=== PATIENT | female | born 1995 | race Caucasian/White ===

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

== ENCOUNTER 2017-03-17 08:47 | Emergency (ER) | payer OTHER ==
[~2017-03-17] VITALS: Ht 160 cm; Wt 57.0 kg
[~2017-03-17 08:47] MED LIST: BCPILLS PO; SERT25TA PO
[2017-03-17 08:53] VITALS: TEMP 36.5; Ht 160 cm; Wt 57.0 kg
[2017-03-17] MEDS ORDERED: SERT50TA PO (09:03)
[2017-03-17] MEDS ORDERED: ONDANSETRON INJ 2 MG/ML 2 ML VIAL IV STA (09:05)
[2017-03-17] MEDS ORDERED: ONDA4TAB46 PO (09:05)
[2017-03-17] MEDS ORDERED: SODIUM CHLORIDE 0.9% 1000ML 1,000 ML IV STA (09:05)
[2017-03-17 09:25] LABS: BASO % 0.3 %; BASO ABS # 0.02 K/uL (0-0.2); COMPLETE YES; EOS % 0.8 %; HEMATOCRIT 43.4 % (37-47); IG% 0.1 %; LYMPH % 25.7 %; LYMPH ABS # 1.92 K/uL (1.2-3.4); MEAN CELL VOLUME 86.6 fL (80-100); MEAN CORPUSCULAR HEMOGLOBIN 30.3 pg (25-34); MEAN PLATELET VOLUME 11.3 fL (7.4-10.4); MONO % 4.1 %; PLATELET COUNT 190 K/uL (130-400); RED BLOOD COUNT 5.01 M/uL (4.2-5.4); WHITE BLOOD COUNT 7.48 K/uL (4.8-10.8)
[2017-03-17] MEDS ORDERED: PROMETHAZINE HCL INJ 25 MG/ML 1 ML VIAL IV STA (09:48)
[2017-03-17 09:49] LABS: BUN/CREATININE RATIO 8.5 (10-20); CALCIUM 9.7 mg/dl (8.5-10.1); CREATININE 0.68 mg/dl (0.60-1.20); POTASSIUM 3.6 mmol/L (3.5-5.1)
[2017-03-17 09:53] LABS: URINE APPEARANCE TURBID (CLEAR); URINE BILIRUBIN NEG (NEG); URINE COLOR DK YELLOW; URINE EPITHELIAL CELL AUTO >30 /lpf (0-5); URINE NITRITE NEG (NEG); URINE SPECIFIC GRAVITY 1.025 (1.000-1.030); UROBILINOGEN NEG (NEG); ZZUR CULT IF INDIC CLEAN CATCH YES
[2017-03-17 09:59] LABS: MANUAL MICROSCOPIC REQUIRED? NO; REVIEW REQ? YES
[2017-03-17] MEDS ORDERED: PROMETHAZINE HCL INJ 25 MG in SODIUM CHLORIDE 0.9% 50ML 50 ML IV STA (10:00)
[2017-03-17 11:22] LABS: URINE APPEARANCE CLOUDY (CLEAR); URINE BILIRUBIN NEG (NEG); URINE COLOR YELLOW; URINE EPITHELIAL CELL AUTO >30 /lpf (0-5); URINE NITRITE NEG (NEG); URINE PH >= 9.0 (4.5-7.5); URINE SPECIFIC GRAVITY 1.019 (1.000-1.030); UROBILINOGEN NEG (NEG); ZZUR CULT IF INDIC CLEAN CATCH YES
[2017-03-17 11:23] LABS: MANUAL MICROSCOPIC REQUIRED? NO; REVIEW REQ? YES
[2017-03-17] MEDS ORDERED: PROM1SUP19 PR (12:24)
--- NOTE | 2017-03-17 12:25 | EMERGENCY ROOM VISIT NOTE ---
History First contact with patient: 08:57 Chief Complaint: NAUSEA Stated Complaint: N/V, ABD. PAIN-6 WKS. Nursing Triage Summary: pt reports she is approx 6 weeks preg - pt reports for the past week nausea and vomitting. pt generalized abd pain. pt reports she had boarding specialist appt last week. pt reports "Everything hurts." History of Present Illness The patient is a 21 year old female who presents to the Emergency Room with complaints of nausea and vomiting for the past 4 days. The patient is 6 weeks . She denies any fever, chest pain or shortness of breath. The patient does admit to generalized abdominal pain. She denies any change in bowel habits. The patient denies any vaginal discharge. The patient states she called into her [employer] DEVELOP[employer] yesterday and was given Zofran but states she has just vomits after taking the Zofran. The patient has been unable to keep anything down. She states the vomiting is getting worse. The patient denies any friends or family members with similar symptoms. The patient states that she had morning sickness with her last but not this bad. Review of Systems 10 system review was performed and was negative unless stated otherwise history of present illness. Past Medical/Surgical History Medical Problems: (1) Tobacco use disorder (2) Tobacco use disorder Surgical Problems: (1) S/P tonsillectomy Family History Diabetes mellitus Hypertension Kidney disease Kidney stones Social History Smoking Status: Current Every Day Smoker Alcohol Use: none Drug Use: none Marital Status: in relationship Housing Status: lives with family Occupation Status: employed Current/Historical Medications Scheduled Sertraline (Zoloft), 50 MG PO HS Scheduled PRN Ondansetron Hcl (Zofran), 4 MG PO Q4H PRN for Nausea or Vomiting Physical Exam Vital Signs Date Time Temp Pulse Resp B/P (MAP) Pulse Ox O2 Delivery O2 Flow Rate FiO2 03/17/17 11:51 58 16 108/69 98 Room Air 03/17/17 10:32 70 18 98/67 98 Room Air 03/17/17 08:53 36.5 64 18 114/94 99 Room Air Physical Exam GENERAL: 21-year-old 6 week female appears in no acute distress. She is actively vomiting. MENTAL Status: Alert and oriented 3. MOUTH: Mucosa is slightly dry. NECK: Supple, no lymphadenopathy noted. No carotid bruits noted. LUNGS: Clear auscultation without wheezes rales or rhonchi. CARDIAC: Regular rate and rhythm without murmur. Pulses is full and equal throughout. BACK: No CVA tenderness noted. ABDOMEN: Positive bowel sounds all 4 quadrants. Generalized tenderness palpation throughout. No specific point tenderness. No rebound or rigidity noted EXTREMITIES: No cyanosis or edema noted. Medical Decision & Procedures Laboratory Results 03/17/17 09:14 Red Blood Count 5.01, Mean Corpuscular Volume 86.6, Mean Corpuscular Hemoglobin 30.3, Mean Corpuscular Hemoglobin Concent 35.0, Mean Platelet Volume 11.3, Neutrophils (%) (Auto) 69.0, Lymphocytes (%) (Auto) 25.7, Monocytes (%) (Auto) 4.1, Eosinophils (%) (Auto) 0.8, Basophils (%) (Auto) 0.3, Neutrophils # (Auto) 5.16, Lymphocytes # (Auto) 1.92, Monocytes # (Auto) 0.31, Eosinophils # (Auto) 0.06, Basophils # (Auto) 0.02 03/17/17 09:14 Test 03/17/17 09:14 03/17/17 11:03 White Blood Count 7.48 K/uL (4.8-10.8) Red Blood Count 5.01 M/uL (4.2-5.4) Hemoglobin 15.2 g/dL (12.0-16.0) Hematocrit 43.4 % (37-47) Mean Corpuscular Volume 86.6 fL (80-100) Mean Corpuscular Hemoglobin 30.3 pg (25-34) Mean Corpuscular Hemoglobin Concent 35.0 g/dl (32-36) Platelet Count 190 K/uL (130-400) Mean Platelet Volume 11.3 fL (7.4-10.4) Neutrophils (%) (Auto) 69.0 % Lymphocytes (%) (Auto) 25.7 % Monocytes (%) (Auto) 4.1 % Eosinophils (%) (Auto) 0.8 % Basophils (%) (Auto) 0.3 % Neutrophils # (Auto) 5.16 K/uL (1.4-6.5) Lymphocytes # (Auto) 1.92 K/uL (1.2-3.4) Monocytes # (Auto) 0.31 K/uL (0.11-0.59) Eosinophils # (Auto) 0.06 K/uL (0-0.5) Basophils # (Auto) 0.02 K/uL (0-0.2) RDW Standard Deviation 42.4 fL (36.4-46.3) RDW Coefficient of Variation 13.4 % (11.5-14.5) Immature Granulocyte % (Auto) 0.1 % Immature Granulocyte # (Auto) 0.01 K/uL (0.00-0.02) Urine Pathogenic Casts /lpf (0) Anion Gap 6.0 mmol/L (3-11) Est Creatinine Clear Calc Drug Dose 110.0 ml/min Estimated GFR () 147.0 Estimated GFR (Non- 126.8 BUN/Creatinine Ratio 8.5 (10-20) Calcium Level 9.7 mg/dl (8.5-10.1) Total Bilirubin 0.6 mg/dl (0.2-1) Direct Bilirubin 0.2 mg/dl (0-0.2) Aspartate Amino Transf (AST/SGOT) 13 U/L (15-37) Alanine Aminotransferase (ALT/SGPT) 20 U/L (12-78) Alkaline Phosphatase 79 U/L (45-117) Total Protein 7.4 gm/dl (6.4-8.2) Albumin 4.6 gm/dl (3.4-5.0) Lipase 117 U/L (73-393) Human Chorionic Gonadotropin, Quant 43938 mIU/mL Urine Color YELLOW Urine Appearance CLOUDY (CLEAR) Urine pH >= 9.0 (4.5-7.5) Urine Specific [place] 1.019 (1.000-1.030) Urine Protein NEG (NEG) Urine Glucose (UA) NEG (NEG) Urine Ketones 2+ (NEG) Urine Occult Blood NEG (NEG) Urine Nitrite NEG (NEG) Urine Bilirubin NEG (NEG) Urine Urobilinogen NEG (NEG) Urine Leukocyte Esterase MODERATE (NEG) Urine WBC (Auto) 10-30 /hpf (0-5) Urine RBC (Auto) 0-4 /hpf (0-4) Urine Hyaline Casts (Auto) 10-30 /lpf (0-5) Urine Epithelial Cells (Auto) >30 /lpf (0-5) Urine Bacteria (Auto) 1+ (NEG) Urine Renal Epithelial Cells /lpf (0-5) Urine Crystals AMORPHOUS SEDIMENT (NONE Medications Administered Medications (Trade) Dose Ordered Sig/Danny Route Start Time Stop Time Status Last Admin Dose Admin Ondansetron HCl (Zofran Inj) 4 mg NOW STAT IV 03/17/17 09:05 03/17/17 09:08 DC 03/17/17 09:17 4 MG Sodium Chloride 1,000 ml @ 999 mls/hr Q1H1M STAT IV 03/17/17 09:05 03/17/17 10:05 DC 03/17/17 09:17 999 MLS/HR Promethazine HCl 25 mg/Sodium Chloride 51 ml @ 204 mls/hr NOW STAT IV 03/17/17 10:00 03/17/17 10:14 DC 03/17/17 10:07 204 MLS/HR ED Course The patient was evaluated. The patient's EMR medication list were reviewed. IV access was obtained. The patient was given 1 L normal saline wide-open and Zofran 4 mg IV push. CBC and differential, renal profile, LFTs and lipase levels were ordered. Quantitative beta-hCG was ordered. Labs are reviewed and were unremarkable. Quantitative beta hCG was 30,000. The patient did not have any relief of nausea with the Zofran and therefore she was given Phenergan 25 mg IV. The patient was reevaluated was feeling better. The patient's urinalysis revealed a lot of contamination therefore a repeat urinalysis was performed. The urine still had positive leukocytes and bacteria but there was still a large amount of epithelial cells. This will be sent for culture. The patient was informed of all findings and discharged home in stable condition. Medical Decision Differential diagnosis include hyper emesis gravidarum, acute gastritis Medication Reconcilliation Current Medication List: was personally reviewed by ks Blood Pressure Screening Patient's blood pressure: Normal blood pressure Impression Primary Impression: Hyperemesis gravidarum Departure Information Dispostion Home / Self-Care Condition GOOD Prescriptions Promethazine (Phenergan Suppository) 25 Mg Supp 25 MG WI Q4H Y for Nausea, #10 SUPP NAUSEA Prov: Lolita Rodriguez PA-C 03/17/17 Referrals No Doctor, Assigned (PCP) Forms HOME CARE DOCUMENTATION FORM, IMPORTANT VISIT INFORMATION Patient Instructions [facility] Additional Instructions Push fluids. Take Zofran as needed for nausea. If the Zofran does not improve your nausea use the Phenergan suppositories as directed. Follow-up with your OB /CHIEF CONCIERGE. If you have any uncontrolled nausea vomiting return to the ER.
[2017-03-17 12:49] VITALS: BP 110/66; PULSE 50; O2SAT 100
== END 2017-03-17 12:50 | disposition home or self-care (01) ==
LOC: C.EDB 08:48
DX: O21.0 Mild hyperemesis gravidarum (principal); Z3A.01 Less than 8 weeks gestation of pregnancy; F17.210 Nicotine dependence, cigarettes, uncomplicated; O99.331 Smoking (tobacco) complicating pregnancy, first trimester

== ENCOUNTER 2017-08-14 15:34 | Emergency (ER) | payer OTHER ==
[~2017-08-14] VITALS: Ht 160 cm; Wt 64.5 kg
[~2017-08-14 15:34] MED LIST changes: -BCPILLS PO; +ONDA4TAB46 PO; +PROM1SUP19 PR; -SERT25TA PO; +SERT50TA PO
[2017-08-14 15:38] VITALS: Ht 160 cm; Wt 64.5 kg
[2017-08-14] MEDS ORDERED: PRENTAB26 PO (16:00)
[2017-08-14 16:44] LABS: BASO % 0.2 %; BASO ABS # 0.02 K/uL (0-0.2); EOS % 0.7 %; EOS ABS # 0.09 K/uL (0-0.5); HEMATOCRIT 33.7 % (37-47); HEMOGLOBIN 11.6 g/dL (12.0-16.0); IG# 0.05 K/uL (0.00-0.02); LYMPH ABS # 2.09 K/uL (1.2-3.4); MEAN CELL VOLUME 90.6 fL (80-100); MEAN CORPUSCULAR HEMOGLOBIN 31.2 pg (25-34); MEAN CORPUSCULAR HGB CONC 34.4 g/dl (32-36); MEAN PLATELET VOLUME 11.1 fL (7.4-10.4); MONO % 4.1 %; NEUT % 77.6 %; NEUT ABS # 9.58 K/uL (1.4-6.5); PLATELET COUNT 180 K/uL (130-400); RED CELL DISTRIBUTION WIDTH CV 13.1 % (11.5-14.5); RED CELL DISTRIBUTION WIDTH SD 43.1 fL (36.4-46.3); WHITE BLOOD COUNT 12.33 K/uL (4.8-10.8)
[2017-08-14 17:10] LABS: ALBUMIN 3.1 gm/dl (3.4-5.0); ALT/SGPT 16 U/L (12-78); AST/SGOT 12 U/L (15-37); BLOOD UREA NITROGEN 5 mg/dl (7-18); CALCIUM 8.4 mg/dl (8.5-10.1); CARBON DIOXIDE 25 mmol/L (21-32); CREATININE 0.33 mg/dl (0.60-1.20); GLUCOSE 70 mg/dl (70-99); POTASSIUM 3.7 mmol/L (3.5-5.1); SODIUM 136 mmol/L (136-145)
[2017-08-14 17:20] LABS: ALKALINE PHOSPHATASE 73 U/L (45-117); TOTAL PROTEIN 6.3 gm/dl (6.4-8.2)
[2017-08-14] MEDS ORDERED: NITROFURANTOIN MONOHYDRATE 100 MG CAP PO ONE (20:30)
[2017-08-14] MEDS ORDERED: NICOTINE POLACRILEX 2 MG GUM MT PRN (20:30)
--- NOTE | 2017-08-14 20:55 | EMERGENCY ROOM VISIT NOTE ---
History Report prepared by Cristiibtom: Vy David Under the Supervision of: Dr. Sharif Fields D.O. First contact with patient: 15:42 Chief Complaint: MENTAL HEALTH EVALUATION Stated Complaint: MENTAL HEALTH EVAL History of Present Illness The patient is a 22 year old female who presents to the Emergency Room with complaints of needing a mental health evaluation. She reports she found out recently that her of 4 months has been cheating on her. Today she found out there was "more to it than I previously thought", so she began having suicidal ideations. She denies any active plan or homicidal ideations. She denies any formal mental health diagnoses but admits to thoughts of depression and anxiety in the past. She has a family history of depression her Mother's side. She has never been treated inpatient at a psychiatric facility in the past. Today she asked her to call the police as she felt she needed to be evaluated. The patient is currently 28 weeks with her second and states the has been normal. She has a little boy at home. Her most recent ultrasound was at 22 weeks and normal. She denies any vaginal bleeding or abnormal vaginal discharge. Pt denies headache, change in vision, fevers, chest pain, shortness of breath, nausea, vomiting, diarrhea, pain with urination, and melena. 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 A total of 10 systems reviewed and were otherwise negative. Past Medical & Surgical Medical Problems: (1) Tobacco use disorder (2) Tobacco use disorder Surgical Problems: (1) S/P tonsillectomy Family History Diabetes mellitus Hypertension Kidney disease Kidney stones Social History Smoking Status: Never Smoker Alcohol Use: none Drug Use: none Marital Status: in relationship Housing Status: lives with family Occupation Status: employed Current/Historical Medications Scheduled Multivit/Min/Iron/Fol Ac/Pren ( Vitamin), 1 TAB PO DAILY Allergies Coded Allergies: Amoxicillin (Verified Allergy, Mild, RASH, 08/14/17) Physical Exam Vital Signs Date Time Temp Pulse Resp B/P (MAP) Pulse Ox O2 Delivery O2 Flow Rate FiO2 08/14/17 17:00 80 14 106/76 99 08/14/17 15:38 36.8 101 17 118/78 98 Room Air Physical Exam GENERAL: Sitting up in bed, alert, anxious and tearful, in no acute distress EYE EXAM: Conjunctiva injected OROPHARYNX: no exudate, no erythema, lips, buccal mucosa, and tongue normal and mucous membranes are moist NECK: supple, no nuchal rigidity, no adenopathy, non-tender LUNGS: Clear to auscultation. Normal chest wall mechanics HEART: no murmurs, S1 normal and S2 normal ABDOMEN: Gravid uterus, non-tender abdomen, normo-active bowel sounds, no masses , no rebound or guarding. BACK: Back is symmetrical on inspection and there is no deformity, no midline tenderness, no CVA tenderness. SKIN: no rashes and no bruising UPPER EXTREMITIES: upper extremities are grossly normal. LOWER EXTREMITIES: No pitting edema. NEURO EXAM: Normal sensorium, cranial nerves II-XII grossly intact, normal speech, no gross weakness of arms, no gross weakness of legs. Gross sensation intact. PSYCHIATRIC: Admits to suicidal thoughts, no clear plan. Medical Decision & Procedures Laboratory Results 08/14/17 16:23 Red Blood Count 3.72, Mean Corpuscular Volume 90.6, Mean Corpuscular Hemoglobin 31.2, Mean Corpuscular Hemoglobin Concent 34.4, Mean Platelet Volume 11.1, Neutrophils (%) (Auto) 77.6, Lymphocytes (%) (Auto) 17.0, Monocytes (%) (Auto) 4.1, Eosinophils (%) (Auto) 0.7, Basophils (%) (Auto) 0.2, Neutrophils # (Auto) 9.58, Lymphocytes # (Auto) 2.09, Monocytes # (Auto) 0.50, Eosinophils # (Auto) 0.09, Basophils # (Auto) 0.02 08/14/17 16:23 Test 08/14/17 00:00 08/14/17 16:23 Urine Color YELLOW Urine Appearance CLOUDY (CLEAR) Urine pH 8.5 (4.5-7.5) Urine Specific [place] 1.016 (1.000-1.030) Urine Protein NEG (NEG) Urine Glucose (UA) NEG (NEG) Urine Ketones NEG (NEG) Urine Occult Blood TRACE (NEG) Urine Nitrite NEG (NEG) Urine Bilirubin NEG (NEG) Urine Urobilinogen NEG (NEG) Urine Leukocyte Esterase SMALL (NEG) Urine WBC (Auto) 5-10 /hpf (0-5) Urine RBC (Auto) 5-10 /hpf (0-4) Urine Hyaline Casts (Auto) 5-10 /lpf (0-5) Urine Epithelial Cells (Auto) >30 /lpf (0-5) Urine Bacteria (Auto) 1+ (NEG) Urine Test POS (NEG) Urine Opiates Screen NEG (NEG) Urine Methadone, Qualitative NEG (NEG) Urine Barbiturates NEG (NEG) Urine Phencyclidine (PCP) Level NEG (NEG) Ur Amphetamine/Methamphetamine NEG (NEG) MDMA (Ecstasy) Screen NEG (NEG) Urine Benzodiazepines Screen NEG (NEG) Urine Cocaine Metabolite NEG (NEG) Urine Marijuana (THC) NEG (NEG) White Blood Count 12.33 K/uL (4.8-10.8) Red Blood Count 3.72 M/uL (4.2-5.4) Hemoglobin 11.6 g/dL (12.0-16.0) Hematocrit 33.7 % (37-47) Mean Corpuscular Volume 90.6 fL (80-100) Mean Corpuscular Hemoglobin 31.2 pg (25-34) Mean Corpuscular Hemoglobin Concent 34.4 g/dl (32-36) Platelet Count 180 K/uL (130-400) Mean Platelet Volume 11.1 fL (7.4-10.4) Neutrophils (%) (Auto) 77.6 % Lymphocytes (%) (Auto) 17.0 % Monocytes (%) (Auto) 4.1 % Eosinophils (%) (Auto) 0.7 % Basophils (%) (Auto) 0.2 % Neutrophils # (Auto) 9.58 K/uL (1.4-6.5) Lymphocytes # (Auto) 2.09 K/uL (1.2-3.4) Monocytes # (Auto) 0.50 K/uL (0.11-0.59) Eosinophils # (Auto) 0.09 K/uL (0-0.5) Basophils # (Auto) 0.02 K/uL (0-0.2) RDW Standard Deviation 43.1 fL (36.4-46.3) RDW Coefficient of Variation 13.1 % (11.5-14.5) Immature Granulocyte % (Auto) 0.4 % Immature Granulocyte # (Auto) 0.05 K/uL (0.00-0.02) Anion Gap 4.0 mmol/L (3-11) Est Creatinine Clear Calc Drug Dose 245.7 ml/min Estimated GFR () > 150.0 Estimated GFR (Non- > 150.0 BUN/Creatinine Ratio 15.6 (10-20) Calcium Level 8.4 mg/dl (8.5-10.1) Total Bilirubin 0.3 mg/dl (0.2-1) Direct Bilirubin < 0.1 mg/dl (0-0.2) Aspartate Amino Transf (AST/SGOT) 12 U/L (15-37) Alanine Aminotransferase (ALT/SGPT) 16 U/L (12-78) Alkaline Phosphatase 73 U/L (45-117) Total Protein 6.3 gm/dl (6.4-8.2) Albumin 3.1 gm/dl (3.4-5.0) Thyroid Stimulating Hormone (TSH) 0.787 uIu/ml (0.300-4.500) Ethyl Alcohol mg/dL < 3.0 mg/dl (0-3) Laboratory results per my review. ED Course ED COURSE: Vital signs were reviewed and showed normal vital signs The patients medical record was reviewed The above diagnostic studies were performed and reviewed. ED treatments and interventions as stated above. 1550: The patient was evaluated in room A8. A complete history and physical examination was performed. 1814: I reevaluated the patient. She does not want to stay in the hospital. We will use her petitioning statement to issue a 302 warrant. 1913: Psychiatric case management informed me [facility] is on the way to come evaluate the patient. 2020: Upon reevaluation, the patient is resting comfortably. I discussed my findings with the patient and she understands and agrees with the treatment plan. 0: This patient is a sign out to Dr. Rojas at the end of my shift. Based on the patients age, coexisting illnesses, exam and lab findings the decision to treat as an inpatient was made. The patient remained stable while under my care. The patient will be evaluated for further management. Medical Decision Etiologies such as mood disorder, infection, hypoglycemia, electrolyte abnormalities, cardiac sources, intracerebral event, toxicologic, neurologic, as well as others were entertained. Patient is a 22-year-old female who is 28 weeks without complications is a who presents to ER for thoughts of self-harm and one to kill herself. There was a petition statement by her ex- where she was stating that she wanted to kill herself, and wanted to kill the child. Patient admits to all this after finding out that her cheated on her. They have been together for 5 years and for about 4 months. Patient has no other physical complaints. Mild leukocytosis secondary to . BMP was unremarkable. LFTs and bilirubin were normal. TSH is normal. Tox and alcohol was negative. UA has bacteria present and with the will treat with Macrobid 1 tablet twice a day for the next 7 days. Bedside ultrasound shows IUP with heart rate of 151 moving all extremities. 302 was signed by myself and bed search will continue. Patient was signed out to Dr. rojas at change shift. Medication Reconcilliation Current Medication List: was personally reviewed by me Blood Pressure Screening Patient's blood pressure: Normal blood pressure Blood pressure disposition: Did not require urgent referral Impression Primary Impression: Suicidal ideation Additional Impression: Mood disorder Scribe Attestation The scribe's documentation has been prepared under my direction and personally reviewed by me in its entirety. I confirm that the note above accurately reflects all work, treatment, procedures, and medical decision making performed by me. Departure Information Dispostion Still a Patient (This patient is a sign out to Dr. Rojas at the end of my shift) Referrals No Doctor, Assigned (PCP) Patient Instructions My [facility] Problem Qualifiers
[2017-08-15 01:45] VITALS: BP 110/63; PULSE 72; TEMP 36.8; O2SAT 99
[2017-08-15] MEDS ORDERED: NITROFURANTOIN MONOHYDRATE 100 MG CAP PO SCH (09:00)
== END 2017-08-15 01:46 ==
LOC: C.EDB 15:35 → C.EDA 08-15 01:46
DX: O99.343 Other mental disorders complicating pregnancy, third trimester (principal); F39 Unspecified mood [affective] disorder; R45.851 Suicidal ideations; Z3A.28 28 weeks gestation of pregnancy; Z90.89 Acquired absence of other organs; Z83.3 Family history of diabetes mellitus; Z82.49 Family history of ischemic heart disease and other diseases of the circulatory system; Z84.1 Family history of disorders of kidney and ureter; Z81.8 Family history of other mental and behavioral disorders

== ENCOUNTER 2017-11-01 07:25 | Inpatient (IN) | payer OTHER ==
[~2017-11-01] VITALS: Ht 160 cm; Wt 73.0 kg
[~2017-11-01 07:25] MED LIST changes: -ONDA4TAB46 PO; +PRENTAB26 PO; -PROM1SUP19 PR; -SERT50TA PO
[2017-11-01] MEDS ORDERED: NURSING VERBAL MED ORDER ONE (08:00)
[2017-11-01] MEDS: LACTATED RINGER'S 1000ML 1,000 ML IV SCH ×3 (08:28→15:05)
[2017-11-01 08:38] LABS: HEMATOCRIT 34.7 % (37-47); HEMOGLOBIN 11.8 g/dL (12.0-16.0); MEAN CELL VOLUME 90.6 fL (80-100); MEAN CORPUSCULAR HEMOGLOBIN 30.8 pg (25-34); MEAN PLATELET VOLUME 11.6 fL (7.4-10.4); PLATELET COUNT 184 K/uL (130-400); RED CELL DISTRIBUTION WIDTH CV 13.5 % (11.5-14.5); RED CELL DISTRIBUTION WIDTH SD 44.3 fL (36.4-46.3); WHITE BLOOD COUNT 11.37 K/uL (4.8-10.8)
[2017-11-01 09:34] VITALS: Ht 160 cm; Wt 73.0 kg
[2017-11-01] MEDS ORDERED: SERT50TA PO (10:23)
[2017-11-01] MEDS ORDERED: FENTANYL CITRATE INJ 50 MCG/1 ML 2 ML VIAL ONE (11:12)
[2017-11-01] MEDS ORDERED: BUPIVACAINE 0.25% 30 ML VIAL ONE (11:12)
[2017-11-01] MEDS ORDERED: EpHEDrine SULFATE INJ 50 MG/ML AMP ONE (11:12)
[2017-11-01] MEDS ORDERED: FENTANYL 2MCG/ML ROPIV 1.25MG/ML 100ML BAG EPI ONE (11:13)
[2017-11-01] MEDS ORDERED: NALOXONE HCL INJ 1 MG in SODIUM CHLORIDE 0.9% 1000ML 1,000 ML IV PRN (11:48)
[2017-11-01] MEDS ORDERED: LACTATED RINGER'S 1000ML 500 ML IV PRN (11:48)
[2017-11-01] MEDS ORDERED: EpHEDrine SULFATE INJ 50 MG/ML AMP IV PRN (12:00)
[2017-11-01] MEDS ORDERED: ONDANSETRON INJ 2 MG/ML 2 ML VIAL IV PRN (12:00)
[2017-11-01] MEDS ORDERED: NALOXONE HCL INJ 0.4 MG/1 ML VIAL/CARP IV PRN (12:00)
[2017-11-01] MEDS ORDERED: DiphenhydrAMINE HCL 50 MG/ML VIAL IV PRN (12:00)
[2017-11-01] MEDS ORDERED: NALBUPHINE HCL INJ 10 MG/ML AMP IV PRN (12:00)
[2017-11-01] MEDS ORDERED: FENTANYL 2MCG/ML ROPIV 1.25MG/ML 100ML BAG EPI PRN (12:00)
[2017-11-01] MEDS ORDERED: OXYTOCIN 30 UNITS/500ML NSS IV ONE (15:17)
[2017-11-01] MEDS ORDERED: OXYCODONE/ACETAMINOPHEN 5-325 TAB PO PRN (15:30)
[2017-11-01] MEDS ORDERED: SUPERCREAM 0.870 % 15GM JAR EXT PRN (15:30)
[2017-11-01] MEDS ORDERED: HYDROCORTISONE ACETATE 25 MG SUPP PR PRN (15:30)
[2017-11-01] MEDS ORDERED: OXYTOCIN 30 UNITS/500ML NSS IV PRN (15:30)
[2017-11-01] MEDS ORDERED: DIPHTHERIA/TETANUS/PERTUSSIS 0.5 ML SYR/VIAL IM. ONE (15:30)
[2017-11-01] MEDS ORDERED: BENZOCAINE 20% AER SPR 82.5 GM CAN EXT PRN (15:30)
[2017-11-01] MEDS ORDERED: ACETAMINOPHEN 325 MG TAB PO PRN (15:30)
[2017-11-01] MEDS ORDERED: LANOLIN OINT EXT PRN (15:30)
--- NOTE | 2017-11-01 15:37 | DELIVERY SUMMARY ---
DATE OF OPERATION: 11/01/2017 TIME OF DELIVERY: 151. DELIVERY OF PLACENTA: 1515. DELIVERY NOTE: The patient is a 22-year-old 2, para 1 at 38 weeks and 6 days gestation who was admitted to labor and delivery on the morning of 11/01/2017 in active labor. She was found to be 4-5 cm dilated, 75% effaced with 0 station. heart tones are category 1. Her care was complicated with history of depression and was on Zoloft 50 mg daily. The patient was admitted and received an epidural for anesthesia. Artificial rupture of membranes was performed at 1415 with clear amniotic fluid noted. I was called after the baby was delivered. The patient delivered on the bed. She delivered a viable male child to an intact perineum. Apgars were 8 at 1 minute and 9 at 5 minutes. Please see nursing notes for further baby assessment. As I arrived to the room, the baby was already delivered. Cord blood donation was obtained. An intact placenta with 3-vessel cord was delivered at 1515. Oxytocin infusion was then began. The lower uterine segment and vagina were cleared of any blood clots and debris. Exploration of the perineum noted no lacerations. Estimated blood loss was 250 mL. All sponge and instrument counts were found to be correct x2. Both patient and baby tolerated the delivery well and were in recovery with stable vital signs. I attest to the content of the Intraoperative Record and any orders documented therein. Any exception s are noted below.
--- NOTE | 2017-11-01 16:47 | Anesthesia Procedure Note ---
Anesthesia Epidural Removal Nt Date & Time Nov 01, 2017 at 16:47 Vital Signs Pain Intensity: 0.0 Notes Mental Status: alert / awake / arousable, participated in evaluation Nausea / Vomiting: adequately controlled Pain: adequately controlled Airway Patency, RR, SpO2: stable & adequate BP & HR: stable & adequate Hydration State: stable & adequate Neuraxial Anesthesia: was administered Anesthetic Complications: no major complications apparent, pt satisfied with anesthetic care Epidural: removed without complications, with tip intact
[2017-11-01] MEDS: IBUPROFEN 600 MG TAB PO PRN (17:38)
[2017-11-01 18:15] VITALS: BP 110/74; PULSE 73; TEMP 36.7
[2017-11-01 19:50] VITALS: BP 110/72; PULSE 65; TEMP 36.5
[2017-11-01] MEDS: DOCUSATE SODIUM 100 MG CAP PO SCH (19:58)
[2017-11-02 00:45] VITALS: BP 99/65; PULSE 67; TEMP 36.4; O2SAT 96
[2017-11-02] MEDS: IBUPROFEN 600 MG TAB PO PRN ×3 (00:59→16:04)
[2017-11-02 04:20] VITALS: BP 95/65; PULSE 68; TEMP 36.5; O2SAT 97
[2017-11-02] MEDS: DOCUSATE SODIUM 100 MG CAP PO SCH (07:55)
[2017-11-02] MEDS ORDERED: PRENATAL VITAMIN TAB PO SCH (08:00)
[2017-11-02] MEDS ORDERED: SERTRALINE HCL 50 MG TAB PO SCH (08:00)
[2017-11-02] MEDS ORDERED: FERROUS SULFATE 325 MG TAB PO SCH (08:00)
[2017-11-02 08:03] LABS: HEMATOCRIT 32.9 % (37-47); HEMOGLOBIN 11.2 g/dL (12.0-16.0)
--- NOTE | 2017-11-02 08:52 | OB/GYN Progress Note ---
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 Patient is seen and examined. She feels well, no complaints. Ambulating without dizziness Voiding without difficulty Tolerating regular diet with out N&V Bleeding is minimal No fever/ chills/ CP/ SOB/ N&V/ Leg pain Breast feeding without problems Date Time Temp Pulse Resp B/P (MAP) Pulse Ox O2 Delivery O2 Flow Rate FiO2 11/02/17 04:20 36.5 68 18 95/65 (75) 97 Room Air 11/02/17 00:45 36.4 67 16 99/65 (76) 96 Room Air 11/02/17 00:45 96 Room Air 11/01/17 19:50 36.5 65 18 110/72 (85) Room Air 11/01/17 18:15 Room Air 11/01/17 18:15 36.7 73 18 110/74 (86) Room Air Last 24 Hours Test 11/02/17 07:40 Hemoglobin 11.2 g/dL Hematocrit 32.9 % PE: General: Alert, orientedx3, NAD Abd: soft, NT, fundus firm, below Umbilicus Perineum intact, Lochia rubra minimal Ext; NT, no edema AP: 22 yo s/p , ppd# 1 VSS Afebrile doing well Continue routine care All questions were answered D/C home tomorrow
[2017-11-02 09:21] VITALS: BP 108/79; PULSE 66; TEMP 36.5; O2SAT 100
[2017-11-02 12:00] VITALS: BP 117/80; PULSE 66; TEMP 36.5
--- NOTE | 2017-11-02 13:28 | Discharge Instructions ---
Discharge Instructions Date of Service Nov 02, 2017. Admission Reason for Admission: Labor Check Discharge Discharge Diagnosis / Problem: Discharge Goals Goal(s): Routine recovery after delivery Medications Continue Dispensed Medications: lansinoh Activity Recommendations Activity Limitations: as noted below ACTIVITY RECOMMENDATIONS: * Gradual return to full activity over the next 2-3 weeks. * No lifting - nothing heavier than baby over the next 2-3 weeks. * Do not engage in vigorous exercise, sexual activity or sports until cleared by your physician. * Do not drive or operate any motorized equipment until cleared by your physician. * You may shower/bathe daily. BREAST CARE: If you are not breast feeding: * Wear a supportive bra 24 hours a day for one to two weeks. * Avoid stimulating your breasts and nipples as much as possible during the first few weeks after delivery. * When taking a shower, have the warm water hit your back, not breasts. * When your breasts feel full, apply ice packs. Usually three to four times a day helps ease the discomfort. * Take a mild pain medication (Tylenol/Motrin) when you are uncomfortable. If breast feeding: * Use breast milk to lubricate nipples. Lansinoh cream may be used for sore nipples. You do not need to remove cream prior to breast feeding. If using a different brand of cream, check the label for directions regarding removal of cream prior to nursing. * Wear a supportive bra. * If having problems with breasts or breast feeding, call a network security consultant or your health care provider. EPISIOTOMY CARE: After delivery, if you have an episiotomy (stitches), the following steps will ease discomfort and aid healing. * For the first 24 hours after delivery, place ice packs next to your episiotomy to help reduce swelling. * After the first 24 hour-period, sitz baths, either portable or in the tub, are suggested. A shower with a shower arm sprayed over the episiotomy may be comforting. * Tawnya care should be done after each voiding and bowel movement. Squirt warm water from a plastic bottle over the perineum (region of the body between the anus and urinary opening) and pat dry. * Use Dermoplast to ease discomfort. Shake container. [place] directly over the episiotomy. * Place a Tucks on a clean sanitary pad next to your episiotomy. OVER THE COUNTER MEDICATION: * For discomfort or pain, you may use Acetaminophen (Tylenol), Ibuprofen (Advil ), or Naproxen (Aleve) following the package directions. * For constipation you may use Colace following the package directions. SPECIAL CARE INSTRUCTIONS: When you are discharged from the hospital, it is important for you to follow the instructions listed below: * During the first week at home, you should be able to care for yourself and your baby. In addition, the usual light household activities are encouraged. * Limit your activities to the way you feel. Do not try to clean the house or move furniture. Be sensible. * If you actively engage in sports and have done so up until the time of your delivery, you may resume these activities as soon as you feel able. This may take up to one month or even longer. Use good judgment. * Continue to take your vitamins for at least six weeks after the of your baby. * Your diet need not be limited unless you were on a special diet before your delivery. Breast-feeding mothers need around 2500 calories per day and at least 64-80 ounces of fluid per day (8 to 10 glasses). * You should eat foods from the four major food groups. Crash diets or fad diets are to be avoided. Eating lean meats, fresh fruits and vegetables, low-fat dairy products, high fiber foods and a regular exercise program, will help you get back to your pre- weight without putting your health at risk. * Constipation is sometimes a problem after delivery. Take a mild laxative as needed. If breast feeding, Milk of Magnesia is acceptable to use. You may use a suppository or Fleets enema if no episiotomy. * A daily shower or tub bath is suggested. Be sure to thoroughly and gently dry the perineum. * A bloody vaginal discharge will usually continue until around four weeks post . A small amount of bleeding may continue for as long as six weeks. Vaginal discharge changes from the bright red bleeding after delivery to pink then brownish and finally yellowish-pink before becoming white and disappearing. * Bleeding may increase with activity. Your first period may come in 4-8 weeks. If you are breast feeding, your period may be delayed even longer. * [place] (sex) can begin whenever both you and your partner feel comfortable and do not have any form of genital infection. It is recommended that you wait until after your return appointment and discuss with your physician. If you have questions, please talk to your health care practitioner. A condom should be used to prevent infection and . * Foreplay, gentle intercourse and lubrication is very important the first several times to prevent pain. A water-based lubricant such as K-Y jelly or Astroglide may be used. * Tampons may be used six weeks after delivery. * Douching should be avoided for 6 weeks after delivery. * If you have RH negative blood and your baby is RH positive, you will receive RHOGAM by injection prior to discharge. The nurse will give you a card to keep with you that has the date and place that you received RHOGAM after delivery. * During your care, you had a Rubella screen done to check for the presence of rubella antibodies in your blood. If your test was negative, you will receive a Rubella vaccine prior to discharge. This vaccine may cause a fever, soreness at the injection site and flu-like symptoms. If these symptoms persist, notify your health care practitioner. is not advised for three months after a Rubella vaccine. There is a higher chance of having a baby with defects if conceived within three months of getting the vaccine. * If you were discharged 24 hours from delivery or before 48 hours: Visiting nurses will come to your home 48 hours after discharge to assess you and your baby. The visiting nurse will meet with you while you are in the hospital to arrange a time and get directions to your home. * Verbalizes understanding of car seat law as reviewed with patient nursing. * Car Seat hand-out given and reviewed with patient by nursing. * Shaken baby information reviewed with patient by nursing. Call you doctor if: * Heavy bleeding (saturating several pads an hour) or passing clots the size of your fist. * A fever >101 degrees F (38.3 degrees C) on two occasions four hours apart and/or chills. * Unusual pain in the pelvic or vaginal areas. * "Baby Blues" lasting longer than two weeks. If you have any questions or concerns, call your health care practitioner at . FOLLOW-UP VISIT: * Please call the office at to schedule a 6 week examination. It is important you keep this appointment. * It is important for you to make arrangements for either yearly or twice yearly check-ups thereafter. . Current Hospital Diet Patient's current hospital diet: Regular OB Diet Discharge Diet Recommended Diet: Regular Diet Pending Studies Studies pending at discharge: no Medical Emergencies . Who to Call and When: Medical Emergencies: If at any time you feel your situation is an emergency, please call 911 immediately. . Non-Emergent Contact Non-Emergency issues call your: Specialist Call Non-Emergent contact if: temperature is above 100.5, temperature is above 101, your pain is not controlled, your pain is worsening, you have any medication questions . . "Provider Documentation" section prepared by Easton Freedman. .
--- NOTE | 2017-11-02 13:43 | OB/GYN Progress Note ---
WRAPPER STEMMER HAND Progress Note Date of Service: Nov 02, 2017. Baby is being discharged and the patient desires to be discharged too No complaints Discussed contraception with patient in details. Abstinence for 6 weeks, BCP, progestin only pills, Nexplanon, IUD's, Mirena and Pargard. She likes to think about it and decide at 6 wks pp visit I gave her printer information about contraception. She lives by herself and feels comfortable to be discharged. Has support from her family/ parents Declined social service consult All questions were answered Instructions were given when to call
[2017-11-02 16:00] VITALS: BP 118/78; PULSE 62; TEMP 36.9
[2017-11-02 17:30] VITALS: BP_DIAS 80; PULSE 66; TEMP 36.5
[2017-11-02] MEDS ORDERED: BISACODYL 5 MG TABEC PO SCH (20:00)
[2017-11-03] MEDS ORDERED: BISACODYL 10 MG SUPP PR PRN (07:00)
== END 2017-11-02 19:15 | disposition home or self-care (01) | DRG 775 ==
LOC: C.OPB 07:25 → C.LD 07:25 → C.OPB 08:04 → C.OBG 18:00
PROVIDERS: ADMIT Obstetrics & Gynecology; ATTEND Obstetrics & Gynecology
PROC: 10E0XZZ Delivery of Products of Conception, External Approach (ICD-10-PCS; principal; 2017-11-01)
DX: O99.343 Other mental disorders complicating pregnancy, third trimester (principal); F32.9 Major depressive disorder, single episode, unspecified; Z37.0 Single live birth; Z3A.39 39 weeks gestation of pregnancy

== ENCOUNTER 2018-09-09 22:41 | Inpatient (IN) ==
[2018-09-09 23:05] LABS: Appearance Urine Turbid (Clear); Bacteria Urine Automated 1+ (Negative); Bilirubin Urine Negative (Negative); Color Urine Dark Yellow; Epithelial Cell Urine Auto >30 /lpf (0-5); Glucose Urine UA Negative (Negative); Ketones Urine Trace (Negative); Leukocyte Esterase Urine 3+ (Negative); Nitrite Urine Negative (Negative); Specific Gravity Urine 1.034 (1.000-1.030); Urobilinogen Urine Negative (Negative); WBC Urine Automated >30 /hpf (0-5); pH Urine 7.5 (4.5-7.5)
[2018-09-09 23:14] LABS: Protein Urine Negative (Negative)
[2018-09-09 23:18] LABS: Amorphous Sediment Urine Present (None Prsent)
[2018-09-09 23:19] LABS: Calcium Oxalate Crystals Urine Present (None Prsent)
[2018-09-09 23:22] LABS: Amphetamines+Metham, Urine Pos (Neg); Barbiturates, Urine Neg (Neg); Benzodiazepine, Urine Neg (Neg); Cocaine, Urine Neg (Neg); MDMA (Ecstacy), Urine Neg (Neg); Methadone, Urine Neg (Neg); Opiate, Urine Neg (Neg); Phencyclidine, Urine Neg (Neg)
[2018-09-09 23:46] LABS: Basophils # (auto) 0.03 K/uL (0-0.2); Basophils % (auto) 0.4 %; Eosinophils % (auto) 1.2 %; Hematocrit (blood only) 43.8 % (37-47); Hemoglobin 14.4 g/dL (12.0-16.0); Immature Granulocytes # (auto) 0.01 K/uL (0.00-0.02); Immature Granulocytes % (auto) 0.1 %; Lymphocytes # (auto) 2.82 K/uL (1.2-3.4); Lymphocytes % (auto) 33.3 %; Mean Corpuscular Hgb Conc 32.9 g/dL (32-36); Mean Corpuscular Volume 92.6 fL (80-100); Monocytes # (auto) 0.42 K/uL (0.11-0.59); Neutrophils # (auto) 5.08 K/uL (1.4-6.5); Platelet Count 248 K/uL (130-400); RDW Coefficient of Variation 13.2 % (11.5-14.5); RDW Standard Deviation 44.6 fL (36.4-46.3); Red Blood Count 4.73 M/uL (4.2-5.4); White Blood Count 8.46 K/uL (4.8-10.8)
[2018-09-10 00:07] LABS: Albumin Level 3.9 gm/dl (3.4-5.0); BUN Creatinine Ratio 16.3 (10-20); Calcium 9.5 mg/dl (8.5-10.1); Creatinine Clr Calc Pharmacy 100.5 ml/min; Est GFR (African American) 120.3; Est GFR (Non-African American) 103.8
[2018-09-10 00:14] LABS: Pregnancy Test, Serum Negative (Negative)
[2018-09-10 00:17] LABS: Albumin Globulin Ratio 1.3 (0.9-2); Bilirubin,Total 0.4 mg/dl (0.2-1); Globulin 3.1 gm/dl (2.5-4.0)
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
[2018-09-10] MEDS ORDERED: ACETAMINOPHEN 325 MG TAB PO PRN (14:40)
[2018-09-10] MEDS ORDERED: SODIUM CHLORIDE 0.65% NA SOLN 45 ML (OCEAN) PRN (14:40)
[2018-09-10] MEDS ORDERED: BISMUTH SUBSALICYLATE PER ML OMNICELL CHARGE PO PRN (14:40)
[2018-09-10] MEDS ORDERED: MAGNESIUM HYDROXIDE SUSP 30 ML UDC PO PRN (14:40)
[2018-09-10] MEDS ORDERED: ALUMINUM/MAGNESIUM SUSP 30 ML UDC PO PRN (14:40)
--- NOTE | 2018-09-10 14:43 | Emergency Department Note ---
ED Visit Note Patient accepted to [facility]. .
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
[2018-09-14 07:29] LABS: Amphetamine Urine, Confirm 1780 NG/ML (CUTOF=250); Marijuana Quant, GCMS Urine 53 NG/ML (CUTOFF=5)
== END 2018-09-12 14:23 | disposition home or self-care (01) | DRG 897 ==
LOC: ED 22:41 → 3S 09-10 14:40